=== PATIENT | female | born 1995 | race Caucasian/White ===

== ENCOUNTER 2021-12-11 11:40 | Emergency (ER) | payer OTHER ==
[2021-12-11 12:28] LABS: BASOPHIL 0.4 % (0-2); EOSINOPHIL 1.4 % (0-5); HCT 40.1 % (37.0-47.0); HGB 13.6 g/dl (12.5-16.0); LYMPHOCYTE 11.7 % (15-48); MCH 31.2 pg (25.0-31.0); MCHC 33.9 g/dL (32.0-36.0); MONOCYTE 5.8 % (0-12); MPV 10.2 fL (6.0-9.5); NEUTROPHIL 80.3 % (41-80); NRBC 0; PLT 239 K/uL (150-400); RBC 4.36 M/uL (4.20-5.40); RDW 13.5 % (11.5-14.0); WBC 9.7 K/uL (4.0-10.5)
[2021-12-11 12:37] LABS: D-DIMER 0.89 ug/mLFEU (0.00-0.41); INR 1.04 (0.9-1.2); PTT 25.9 SECONDS (24.4-34.7)
[2021-12-11 12:55] LABS: BILIRUBIN - TOTAL 0.2 mg/dL (0.2-1.0); CREATININE 0.67 mg/dL (0.51-0.95); GLOBULIN (CALCULATION) 3.8 g/dL; MAGNESIUM 1.7 mg/dL (1.8-2.4); POTASSIUM 3.5 mmol/L (3.5-5.1); TOTAL PROTEIN 6.8 g/dL (6.4-8.2)
== END 2021-12-11 12:55 | disposition other institution (70) ==
LOC: FER 11:40
PROVIDERS: Emergency Medicine
DX: O99.352 Diseases of the nervous system complicating pregnancy, second trimester (principal); I63.9 Cerebral infarction, unspecified; R29.708 NIHSS score 8; Z88.6 Allergy status to analgesic agent; Z3A.20 20 weeks gestation of pregnancy
CPT/HCPCS: 36415; 80053; 83735; 84484; 85025; 85379; 85610; 85730; 93005; J7030; Q9967